=== PATIENT | male | born 1960 | race African-American/Black ===

== ENCOUNTER 2018-08-16 13:53 | Emergency (ER) | payer SELFPAY ==
[~2018-08-16] VITALS: Ht 177.8 cm; Wt 85.0 kg
[2018-08-16 13:58] VITALS: BP 113/80
== END 2018-08-16 16:54 | disposition left against medical advice (07) ==
LOC: ER 13:53
DX: R53.1 Weakness (principal); Z53.21 Procedure and treatment not carried out due to patient leaving prior to being seen by health care provider